=== PATIENT | male | born 1940 | race Caucasian/White ===

== ENCOUNTER 2023-11-21 11:50 | Day surgery (SDC) | payer OTHER, MEDICARE ==
[2023-11-20 10:17] LABS: Absolute Eosinophils 0.4 K/uL (0-0.5); Absolute Lymphocytes (CBC) 2.3 K/uL (0.7-4.9); Absolute Monocytes 0.9 K/uL (0.1-1.3); Basophils % 0.3 % (0-1.3); Eosinophils % 5.5 % (0-4.4); Hematocrit 41.3 % (39.6-49.0); Hemoglobin 13.4 g/dL (13.6-17.9); Lymphocytes % 29.4 % (15.3-44.8); MCH 30.2 pg (27.0-35.0); MCHC 32.4 g/dL (32.0-36.0); MCV 93.2 fL (80-100); MPV 8.5 fL (7.6-11.3); Monocytes % 12.2 % (3.3-12.3); Neutrophils % 52.6 % (41.7-73.7); Platelets 237 thou/uL (152-406); RBC Red Blood Cell Count 4.44 M/uL (4.33-5.43); Red Cell Distribution Width 14.2 % (12.1-15.2)
[2023-11-20 10:28] LABS: Anion Gap 8.7 mEq/L (5.0-15.0); Potassium 3.7 mEq/L (3.5-5.1)
--- NOTE | 2023-11-20 16:53 | EKG ---
Test Date: 2023-11-20 Test Time: 09:55:59 Blade Sharpener: DORIS MEASUREMENT RESULTS: Intervals: Rate: 58 ID: [id number] QRSD: 102 QT: 422 QTc: 414 [place]: P: 41 ID: [id number] QRS: 60 T: 66 INTERPRETIVE STATEMENTS: Sinus bradycardia Otherwise normal ECG Compared to ECG 06/21/2022 10:05:44 Sinus rhythm no longer present Electronically Signed On 11-20-23 16:52:17 CDT by Jamar Flores
[2023-11-21] MEDS ORDERED: Ringers Lactate 1,000 ML IV ONE (12:04)
[2023-11-21] MEDS ORDERED: CEFAZOLIN SODIUM 1 GM/VIAL ONE (12:20)
[2023-11-21] MEDS ORDERED: ONDANSETRON 4 MG/2 ML VIAL ONE (13:14)
[2023-11-21] MEDS ORDERED: propofoL 200 MG/20 ML VIAL IV ONE (13:15)
[2023-11-21] MEDS ORDERED: LIDOCAINE 2% MPF 5 ML VIAL ONE (13:15)
[2023-11-21] MEDS ORDERED: FENTANYL CITR 100 MCG/2 ML ONE (13:15)
[2023-11-21] MEDS ORDERED: BUPIVACAINE 0.25% PF 30 ML VIAL ONE (13:33)
[2023-11-21] MEDS ORDERED: LIDOCAINE HCL/EPINEPHRINE 20 ML MDV ONE (13:45)
[2023-11-21] MEDS ORDERED: dexAMETHasone 4 MG/ML VIAL ONE (14:21)
[2023-11-21] MEDS ORDERED: EPHEDRINE SULF 50 MG/ML VIAL ONE (14:22)
--- NOTE | 2023-11-21 14:51 | P.OP ---
Preoperative diagnosis: RIGHT Posterior Arm Skin Lesions x 2 Postoperative diagnosis: RIGHT Posterior Arm Skin Lesions x 2 Primary procedure: Wide local excision of RIGHT Posterior Arm Skin Lesions x 2 Anesthesia: GETA + Local Estimated blood loss: <5cc Specimen: RIGHT Posterior Arm Skin Lesions x 2 Findings: ~ 1cm pigmented proximal skin lesion, 1.9cm distal arm skin lesion Complications: None Transferred to: Recovery Room Condition: Good
[2023-11-21 15:54] VITALS: BP 156/96; TEMP 97.1; O2SAT 99
--- NOTE | 2023-11-21 19:45 | OP ---
Date of Procedure: 11/21/2023 Surgeon: Marcello Giraldo MD, Preoperative Diagnosis: Right posterior arm skin lesion x2. Postoperative Diagnosis: Right posterior arm skin lesion x2. Procedure Performed: Wide local excision of right posterior skin arm lesion x2. Anesthesia: General endotracheal plus local with 1% lidocaine with epinephrine. Estimated Blood Loss: Less than 5 cc. Specimen: Right posterior arm skin lesion x2. Findings: Approximately 1 cm pigmented raised skin lesion on the proximal aspect of the triceps and 1.9 cm distal triceps skin lesion which is nonpigmented predominantly. Complications: None. Disposition: Patient transferred to recovery room in good condition. Procedure In Detail: After informed consent was obtained, the patient was brought to the operating r oom, prepped and draped in the usual sterile fashion, after adequate anesthesia was achieved. I made an elliptical incision after demarcating the area with approximately 1.5 cm margins around the skin lesions as described. I made an elliptical incision circumferentially around these using a 15 blade down to subcutaneous tissues. Electrocautery was used to dissect down in the subcutaneous fat ultima tely removing the skin lesions. After marking sutures were placed on both proximal and distal skin l esions, these were then sent off for pathologic examination. The area was copiously irrigated. Hemo stasis was easily achieved with electrocautery. The wound was then closed with 3-0 nylon in an inter rupted fashion and a sterile dressing placed over top. The patient tolerated the procedure well without incident or complication, transferred to PACU in good condition. All counts were correc t at the end of the case. LESLEY/SHAHEED Voice ID: [id number] Report ID: [id number]
== END 2023-11-21 15:54 | disposition home or self-care (01) ==
LOC: OR 11:50
PROVIDERS: ATTEND Surgery
DX: C44.622 Squamous cell carcinoma of skin of right upper limb, including shoulder (principal); L82.1 Other seborrheic keratosis
CPT/HCPCS: 93005; 85025; 80048; 36415; 88305; J2704; J1100; J2001; J3010; J2405; J7120; J0690

== ENCOUNTER 2024-07-20 09:45 | Observation (INO) | payer OTHER, MEDICARE ==
[2024-07-20 10:19] LABS: Absolute Basophils 0.1 K/uL (0-0.5); Absolute Eosinophils 0.5 K/uL (0-0.5); Absolute Lymphocytes (CBC) 1.8 K/uL (0.7-4.9); Absolute Monocytes 0.7 K/uL (0.1-1.3); Absolute Neutrophil 3.1 K/uL (1.8-8.0); Basophils % 0.8 % (0-1.3); Eosinophils % 7.9 % (0-4.4); Hematocrit 38.7 % (39.6-49.0); Hemoglobin 12.9 g/dL (13.6-17.9); Lymphocytes % 28.8 % (15.3-44.8); MCH 30.3 pg (27.0-35.0); MCHC 33.4 g/dL (32.0-36.0); MCV 90.7 fL (80-100); MPV 8.3 fL (7.6-11.3); Neutrophils % 50.5 % (41.7-73.7); Nucleated Red Blood Cells % 0.3 % (0-0); Platelets 242 thou/uL (152-406); RBC Red Blood Cell Count 4.26 M/uL (4.33-5.43); Red Cell Distribution Width 13.6 % (12.1-15.2)
[2024-07-20 10:34] LABS: Anion Gap 9.3 mEq/L (5.0-15.0); Potassium 3.3 mEq/L (3.5-5.1); Troponin High Sensitivity 10.1 pg/mL (<58.9)
--- NOTE | 2024-07-20 10:34 | RAD REPORT ---
EXAMINATION: ONE VIEW CHEST XR CLINICAL INDICATION: CHEST PAIN TECHNIQUE: Frontal chest projection is submitted. Examination is limited by patient positioning and t echnique. COMPARISON: 06/21/2022 FINDINGS: Mild interstitial pulmonary edema is seen. The heart is mildly enlarged in size. No displaced fractur es identified. IMPRESSION: Mild CHF.
--- NOTE | 2024-07-20 11:23 | EDPHYS ---
Physician Documentation [facility] Name: Bo Ulrich Age: 84 yrs Sex: Male : 1940 Arrival Date: 07/20/2024 Time: 09:32 Bed 15 Private MD: ED Physician Alfred Verdin HPI: 07/20 09:48 This 84 yrs old Male presents to ER via Unassigned with complaints of Chest Pain > 30 rn y/o. 09:48 The patient or guardian reports chest pain that is located primarily in the anterior rn aspect of left upper chest. Onset: this morning. The pain radiates to the left arm, left neck. Associated signs and symptoms: Pertinent negatives: abdominal pain, cough, diaphoresis, lower extremity swelling, near syncope, palpitations, shortness of breath, syncope, vomiting. The chest pain is described as aching. Modifying factors: The symptoms are alleviated by ASA, NTG, the symptoms are aggravated by. Severity of pain: At its worst the pain was mild in the emergency department the pain has resolved. Patient reports had left upper outer chest pain this morning, lasted for few minutes, later started to feel left arm tingling that radiated into the left neck. No nausea or diaphoresis. No abdominal pain. No vomiting. No symptoms at this time. Given aspirin and nitroglycerin by EMS. Patient reports had echo and stress test in January that did not lead to heart cath. Has never had a heart cath.. Historical: - Allergies: 09:56 No Known Allergies; kc6 - Home Meds: 14:36 telmisartan 80 mg oral tablet 1 tab daily for hypertension [Active]; trazodone 50 mg kc6 Oral tablet 1 tab daily for insomnia associated with depression [Active]; simvastatin 20 mg Oral tablet 1 tab every day at bedtime for atherosclerotic cardiovascular disease [Active]; bisoprolol-hydrochlorothiazide 2.5-6.25 mg oral tablet 1 tab daily for hypertension [Active]; - PMHx: 09:56 Hypertension; High Cholesterol; kc6 - PSHx: 09:56 None; kc6 - Immunization history:: Adult Immunizations up to date. - Infectious Disease History:: Denies. - Family history:: not pertinent. - Social history:: Smoking status: Patient/guardian denies using tobacco, but has a distant history of tobacco abuse. - Hospitalizations: : No recent hospitalization is reported. ROS: 09:48 Constitutional: Negative for fever, chills, and weight loss, Cardiovascular: Positive rn for chest pain Respiratory: Negative for shortness of breath, cough, wheezing, and pleuritic chest pain, Abdomen/GI: Negative for abdominal pain, nausea, vomiting, diarrhea, and constipation, MS/Extremity: Negative for injury and deformity, Skin: Negative for injury, rash, and discoloration, Neuro: Negative for headache, weakness, numbness, tingling, and seizure, Exam: 09:48 Constitutional: This is a well developed, well nourished patient who is awake, alert, rn and in no acute distress. Chest/axilla: No reproducible chest wall pain or tenderness Cardiovascular: Regular rate and rhythm. No pulse deficits. Respiratory: No increased work of breathing, no retractions or nasal flaring. Abdomen/GI: Soft, non-tender MS/ Extremity: Pulses equal, no cyanosis. Neurovascular intact. Full, normal range of motion. Equal circumference. Neuro: Awake and alert, GCS 15 10:03 ECG was reviewed by the Attending Physician. rn Vital Signs: 09:53 BP 168 / 78; Pulse 57; Resp 17 S; Temp 98.3(O); Pulse Ox 96% on R/A; Weight 81.65 kg kc6 (R); Height 5 ft. 7 in. (R); Pain 0/10; 10:13 BP 155 / 69; Pulse 53; Resp 20 S; Pulse Ox 95% on R/A; kc6 10:57 BP 141 / 63; Pulse 55; Resp 15 S; Pulse Ox 97% on R/A; kc6 11:30 BP 167 / 67; Pulse 57; Resp 18 S; Pulse Ox 97% on R/A; kc6 12:15 BP 165 / 68; Pulse 56; Resp 16 S; Pulse Ox 98% on R/A; kc6 13:11 BP 192 / 73; Pulse 57; Resp 17 S; Pulse Ox 98% on R/A; kc6 13:14 BP 189 / 73; Pulse 55; Resp 15 S; Pulse Ox 98% on R/A; kc6 13:31 BP 208 / 85; Pulse 62; Resp 16 S; Pulse Ox 98% on R/A; kc6 14:04 BP 197 / 75; Pulse 56; Resp 19 S; Pulse Ox 99% on R/A; kc6 15:03 BP 200 / 77; Pulse 51; Resp 14 S; Pulse Ox 98% on R/A; kc6 15:35 BP 212 / 88; Pulse 62; Resp 18 S; Pulse Ox 98% on R/A; kc6 15:39 BP 196 / 77; kc6 16:27 BP 182 / 71; Pulse 58; Resp 16 S; Pulse Ox 98% on R/A; kc6 16:38 BP 174 / 62; Pulse 61; Resp 15 S; Pulse Ox 100% on R/A; kc6 17:06 BP 166 / 64; rn 17:13 BP 166 / 64; Pulse 60; Resp 16 S; Pulse Ox 98% on R/A; kc6 18:12 BP 144 / 65; Pulse 56; Resp 16 S; Pulse Ox 98% on R/A; kc6 09:53 Body Mass Index 28.19 (81.65 kg, 170.18 cm) [facility] 09:53 Pain Scale: Adult [facility] MDM: 09:48 Medical Screening Exam initiated rn 11:21 Differential diagnosis: acute myocardial infarction, acute pericarditis, anxiety, rn coronary artery disease chest wall pain, costochondritis, esophagitis, gastritis, pleurisy, pneumothorax. HEART Score: History: Highly Suspicious (2), ECG: Non specific repolarization disturbance / LBTB / PM (1), Age: > or = 65 years (2), Risk Factors: 1 or 2 risk factors (1), Troponin: < or = 1 x Normal Limit (0), Total Score = 6. The patient was not given aspirin in the Emergency Department. Administered by EMS. Data reviewed: vital signs, nurses notes, lab test result(s), EKG, radiologic studies, plain films, and as a result, I will admit patient. Consideration of Admission/Observation Patient was admitted/placed on observation. Escalation of care including admission/observation considered. Counseling: I had a detailed discussion with the patient and/or guardian regarding the historical points, exam findings, and any diagnostic results supporting the discharge/admit diagnosis, lab results, radiology results, the need for further work-up and treatment in the hospital. Response to treatment: the patient's symptoms have resolved after treatment. 12:47 ED course: Called to room when a new family member went into the room and noticed a rn very slight facial droop. I examined the patient and there does not seem to be asymmetry on exam. There is slight weakness at rest but with active smiling and laughing face is equal and no facial droop appreciated. Ordered CT head and CT angiogram given earlier report of paresthesia and tingling in the left arm but does not seem to be cerebral infarction. Patient denies any abnormalities at this time. Family confirms no change in speech. Patient does not report feeling 1 side of his face weaker than other. No current paresthesias. 16:01 ED course: Patient reported brief episode of left lower extremity weakness and rn numbness. Has now resolved. Lasted approximately 5 minutes. No neurology here so we will transfer to [facility] in the [facility] for neurological consult given incidental aneurysm found on CT angiogram. Patient is not a TNKase candidate due to finding of cerebral aneurysm, but patient has also returned back to baseline. NIH is 0 upon reevaluation. Initiated transfer to [facility] for higher level of care. 07/20 09:48 Order name: Basic Metabolic Panel; Complete Time: 10:38 rn 07/20 09:48 Order name: CBC with Diff; Complete Time: 10:23 rn 07/20 09:48 Order name: NT PRO-BNP; Complete Time: 10:38 rn 07/20 09:48 Order name: Troponin HS; Complete Time: 10:38 rn 07/20 09:48 Order name: XRAY Chest (1 view); Complete Time: 10:38 rn 07/20 12:47 Order name: CT Head Brain wo Cont rn 07/20 12:47 Order name: Head Angio CT rn 07/20 13:11 Order name: CT; Complete Time: 13:34 EDLA 07/20 13:23 Order name: CT; Complete Time: 13:34 EDLA 07/20 11:30 Order name: CONS Physician Consult EDLA 07/20 09:48 Order name: Cardiac monitoring; Complete Time: 09:57 rn 07/20 09:48 Order name: EKG - Nurse/Tech; Complete Time: 10:13 rn 07/20 09:48 Order name: IV Saline Lock; Complete Time: 09:57 rn 07/20 09:48 Order name: Labs collected and sent; Complete Time: 10:13 rn 07/20 09:48 Order name: O2 Per Protocol; Complete Time: :57 rn 07/20 09:48 Order name: O2 Sat Monitoring; Complete Time: : rn EC:03 Rate is 55 beats/min. Rhythm is regular. QRS [place] is Normal. ME interval is normal. QRS rn interval is normal. QT interval is normal. No Q waves. T waves are Normal. No ST changes noted. Clinical impression: Sinus bradycardia. Interpreted by me. Reviewed by me. Administered Medications: 13:41 Drug: cloNIDine PO 0.1 mg PO once Route: PO; kc6 15:04 Follow up: Response: No adverse reaction; Blood pressure is unchanged kc6 15:33 Drug: hydrALAZINE IVP 5 mg IVP once Route: IVP; Site: right wrist; kc6 16:06 Follow up: Response: No adverse reaction; Blood pressure is unchanged kc6 16:21 CANCELLED (Duplicate Order): [id number] mg PO once rn 16:27 Drug: Clopidogrel PO 75 mg PO once Route: PO; kc6 16:54 Follow up: Response: No adverse reaction kc6 16:27 Drug: hydrALAZINE IVP 5 mg IVP once Route: IVP; Site: right wrist; kc6 16:54 Follow up: Response: No adverse reaction; Blood pressure is lowered kc6 16:38 Drug: Keppra IV 500 mg IV at calculated rate once Route: IV; Rate: calculated rate; kc6 Site: right wrist; 16:53 Follow up: Response: No adverse reaction; IV Status: Completed infusion; IV Intake: kc6 100ml Disposition: 16:01 Critical Care:. rn Disposition Summary: 07/20/24 16:04 Transfer Ordered Notes: Transfer Location: [facility] rn Reason: Higher level of care rn Condition: Stable(07/20/24 16:04) rn Problem: new(07/20/24 16:04) rn Symptoms: have improved(07/20/24 16:04) rn Accepting Physician: Dr. Abby Nelson(07/20/24 18:13) kc6 Diagnosis - Chest pain, unspecified(07/20/24 16:04) rn - Paresthesia of skin rn - Weakness rn - Cerebral aneurysm, nonruptured rn Forms: - Medication Reconciliation Form rn - SBAR form integrated marketing intern time excluding procedures: 16:01 Critical care time: Bedside Care: 25 minutes, Family Intervention: 10 minutes. Total rn time: 35 minutes Signatures: Dispatcher [employer] EDMS Alfred Verdin MD MD rn Blanchard, Shelby RN RN Monika Ordonez Kaitlyn RN RN kc6 Corrections: (The following items were deleted from the chart) 09:49 09:49 BASIC METABOLIC PANEL+C.LAB.BRZ ordered. EDMS EDMS 09:49 09:49 CBC+H.LAB.BRZ ordered. EDMS EDMS 09:49 09:49 PROBNP+C.LAB.BRZ ordered. EDMS EDMS 09:49 09:49 Troponin High Sensitivity+C.LAB.BRZ ordered. EDMS EDMS 09:49 09:49 Chest Single View+RAD.RAD.BRZ ordered. EDMS EDMS 15:06 11:22 rn 16:03 11:22 Observation rn rn 16:03 11:22 Prieto Gregory rn rn 16:03 11:22 Telemetry/MedSurg (observation) rn rn 16:03 11:22 Stable rn rn 16:03 11:22 new rn rn 16:03 11:22 have improved rn rn 16:03 11:22 Standard rn rn 16:03 11:22 Chest pain, unspecified rn rn 16:03 15:06 202 ss rn 16:21 16:20 Keppra PO 500 mg PO once ordered. rn rn 16:54 16:04 Dr. coulter eb 18:13 16:54 Dr. Abby Nelson eb kc6
--- NOTE | 2024-07-20 11:23 | ER ---
Nurse's Notes [facility] Name: Bo Ulrich Age: 84 yrs Sex: Male : 1940 Arrival Date: 07/20/2024 Time: 09:32 Bed 15 Private MD: Diagnosis: Chest pain, unspecified;Paresthesia of skin;Weakness;Cerebral aneurysm, nonruptured Presentation: 07/20 09:53 Chief complaint: EMS states: they were toned out for left sided CP that began at 0300 kc6 with left arm/numbness beginning just prior to EMS arrival. pt reports all symptoms have resolved at this time. Coronavirus screen: At this time, the client does not indicate any symptoms associated with coronavirus-19. Ebola Screen: No symptoms or risks identified at this time. Initial Sepsis Screen: Does the patient meet any 2 criteria? No. Patient's initial sepsis screen is negative. Does the patient have a suspected source of infection? No. Patient's initial sepsis screen is negative. Risk Assessment: Do you want to hurt yourself or someone else? Patient reports no desire to harm self or others. Onset of symptoms was July 20, 2024. Care prior to arrival: Medication(s) given: ASA, 81 mg, x 4, Nitroglycerin, 0.4 mg SL x 1, IV initiated. 20 GA, in the right wrist. 09:53 Method Of Arrival: EMS: [place] [id number] 09:53 Acuity: SHANNAN 2 kc6 Historical: - Allergies: 09:56 No Known Allergies; kc - Home Meds: 14:36 telmisartan 80 mg oral tablet 1 tab daily for hypertension [Active]; trazodone 50 mg kc6 Oral tablet 1 tab daily for insomnia associated with depression [Active]; simvastatin 20 mg Oral tablet 1 tab every day at bedtime for atherosclerotic cardiovascular disease [Active]; bisoprolol-hydrochlorothiazide 2.5-6.25 mg oral tablet 1 tab daily for hypertension [Active]; - PMHx: 09:56 Hypertension; High Cholesterol; kc6 - PSHx: 09:56 None; kc6 - Immunization history:: Adult Immunizations up to date. - Infectious Disease History:: Denies. - Family history:: not pertinent. - Social history:: Smoking status: Patient/guardian denies using tobacco, but has a distant history of tobacco abuse. - Hospitalizations: : No recent hospitalization is reported. Screenin:56 [facility] ED Fall Risk Assessment (Adult) History of falling in the last 3 months, kc6 including since admission No falls in past 3 months (0 pts) Confusion or Disorientation No (0 pts) Intoxicated or Sedated No (0 pts) Impaired Gait No (0 pts) Mobility Assist Device Used No (0 pt) Altered Elimination No (0 pt) Score/Fall Risk Level 0 - 2 = Low Risk Oriented to surroundings. Abuse screen: Denies threats or abuse. Denies injuries from another. Nutritional screening: No deficits noted. Tuberculosis screening: No symptoms or risk factors identified. 12:50 [place] Swallow Protocol Exclusion Criteria: Unable to remain alert for testing: No NPO kc6 for medical/surgical reason by provider order No Tracheostomy tube present No No thin liquids due to preexisting dysphagia/baseline modified diet thickened liquids No Exclusion Criteria Result: Proceed Brief Cognitive Screen What is your name? Normal, Where are you right now? Normal, What year is it? Normal. Oral Mechanism Examination Facial Symmetry: Normal, Motion: Normal, Lip Closure: Normal, Oral Mechanism Result: Normal. 3 oz Water Swallow Challenge: Pt able to drink all water without stopping, coughing, choking or throat clearing: Yes Result: PASS MD Notified: Alfred Verdin MD. Assessment: 10:13 General: Appears in no apparent distress. comfortable, well groomed, well developed, kc6 Behavior is calm, cooperative, appropriate for age. Pain: Complains of pain in anterior aspect of left upper chest Pain radiates to face and left arm Pain currently is 0 out of 10 on a pain scale. at worst was 3 out of 10 on a pain scale. Pain began 0300 Is lasting more than 1 hour. Neuro: Level of Consciousness is awake, alert, obeys commands, Oriented to person, place, time, situation, Appropriate for age Reports numbness in left arm and left side of neck. Cardiovascular: Reports chest pain, Heart tones S1 S2 present Capillary refill < 3 seconds Rhythm is sinus bradycardia. Respiratory: Airway is patent Trachea midline Respiratory effort is even, unlabored, Respiratory pattern is regular, symmetrical. GI: No signs and/or symptoms were reported involving the gastrointestinal system. : No signs and/or symptoms were reported regarding the genitourinary system. EENT: No signs and/or symptoms were reported regarding the EENT system. Derm: No signs and/or symptoms reported regarding the dermatologic system. Skin is intact, is healthy with good turgor, Skin is pink, warm \T\ dry. Musculoskeletal: No signs and/or symptoms reported regarding the musculoskeletal system. Circulation, motion, and sensation intact. Range of motion: intact in all extremities. 10:57 Reassessment: Patient appears in no apparent distress at this time. No changes from kc6 previously documented assessment. Patient and/or family updated on plan of care and expected duration. Pain level reassessed. Patient is alert, oriented x 3, equal unlabored respirations, skin warm/dry/pink. 11:57 Reassessment: Patient appears in no apparent distress at this time. No changes from kc6 previously documented assessment. Patient and/or family updated on plan of care and expected duration. Pain level reassessed. Patient is alert, oriented x 3, equal unlabored respirations, skin warm/dry/pink. 12:50 Reassessment: Dr. Verdin at bedside. Neuro: Reports subjective left sided facial droop kc6 per family. Denies weakness blurred vision dizziness, paresthesias numbness headache. 12:57 Reassessment: Patient appears in no apparent distress at this time. No changes from kc6 previously documented assessment. Patient and/or family updated on plan of care and expected duration. Pain level reassessed. Patient is alert, oriented x 3, equal unlabored respirations, skin warm/dry/pink. 13:57 Reassessment: Patient appears in no apparent distress at this time. No changes from kc6 previously documented assessment. Patient and/or family updated on plan of care and expected duration. Pain level reassessed. Patient is alert, oriented x 3, equal unlabored respirations, skin warm/dry/pink. 15:03 Reassessment: Patient appears in no apparent distress at this time. No changes from kc6 previously documented assessment. Patient and/or family updated on plan of care and expected duration. Pain level reassessed. Patient is alert, oriented x 3, equal unlabored respirations, skin warm/dry/pink. 15:33 Neuro: Reports paresthesias in right hand, left hand and mouth. kc6 15:33 Reassessment: Dr. Verdin \T\ Dr. Flores made aware. kc6 15:50 Neuro: Reports numbness in left leg weakness in left leg. kc6 15:50 Reassessment: assisted patient with ambulating to the bathroom. pt appears to be kc6 favoring the left side when ambulating. pt reports left leg numbness and weakness after using the bathroom. pt assisted into a wheelchair and back into bed. Dr. Verdin made aware and at bedside discussing symptoms and POC with pt and family. 15:57 Reassessment: pt reports all symptoms have resolved. kc6 16:01 Reassessment: Dr. Gregory at bedside. kc6 16:27 Reassessment: Patient appears in no apparent distress at this time. No changes from kc6 previously documented assessment. Patient and/or family updated on plan of care and expected duration. Pain level reassessed. Patient is alert, oriented x 3, equal unlabored respirations, skin warm/dry/pink. 17:13 Reassessment: Patient appears in no apparent distress at this time. No changes from kc6 previously documented assessment. Patient and/or family updated on plan of care and expected duration. Pain level reassessed. Patient is alert, oriented x 3, equal unlabored respirations, skin warm/dry/pink. Vital Signs: 09:53 BP 168 / 78; Pulse 57; Resp 17 S; Temp 98.3(O); Pulse Ox 96% on R/A; Weight 81.65 kg kc6 (R); Height 5 ft. 7 in. (R); Pain 0/10; 10:13 BP 155 / 69; Pulse 53; Resp 20 S; Pulse Ox 95% on R/A; kc6 10:57 BP 141 / 63; Pulse 55; Resp 15 S; Pulse Ox 97% on R/A; kc6 11:30 BP 167 / 67; Pulse 57; Resp 18 S; Pulse Ox 97% on R/A; kc6 12:15 BP 165 / 68; Pulse 56; Resp 16 S; Pulse Ox 98% on R/A; kc6 13:11 BP 192 / 73; Pulse 57; Resp 17 S; Pulse Ox 98% on R/A; kc6 13:14 BP 189 / 73; Pulse 55; Resp 15 S; Pulse Ox 98% on R/A; kc6 13:31 BP 208 / 85; Pulse 62; Resp 16 S; Pulse Ox 98% on R/A; kc6 14:04 BP 197 / 75; Pulse 56; Resp 19 S; Pulse Ox 99% on R/A; kc6 15:03 BP 200 / 77; Pulse 51; Resp 14 S; Pulse Ox 98% on R/A; kc6 15:35 BP 212 / 88; Pulse 62; Resp 18 S; Pulse Ox 98% on R/A; kc6 15:39 BP 196 / 77; kc6 16:27 BP 182 / 71; Pulse 58; Resp 16 S; Pulse Ox 98% on R/A; kc6 16:38 BP 174 / 62; Pulse 61; Resp 15 S; Pulse Ox 100% on R/A; kc6 17:06 BP 166 / 64; rn 17:13 BP 166 / 64; Pulse 60; Resp 16 S; Pulse Ox 98% on R/A; kc6 18:12 BP 144 / 65; Pulse 56; Resp 16 S; Pulse Ox 98% on R/A; kc6 09:53 Body Mass Index 28.19 (81.65 kg, 170.18 cm) kc6 09:53 Pain Scale: Adult [facility] ED Course: 09:47 Patient arrived in ED. ss 09:48 Alfred Verdin MD is Attending Physician. rn 09:53 Nai Rolon RN is Primary Nurse. kc6 09:56 Triage completed. kc6 09:56 Arm band placed on. kc6 09:56 Patient has correct armband on for positive identification. Placed in gown. Bed in low kc6 position. Call light in reach. Side rails up X2. Adult w/ patient. die assembler on. Pulse ox on. NIBP on. Door closed. Noise minimized. Lights dimmed. Pillow given. Verbal reassurance given. 09:56 Maintain EMS IV. Dressing intact. Good blood return noted. Site clean \T\ dry. Gauge \T\ ivanna 6 site: 20GWRIST. Flushed with 10 mL NS. Patient maintains SpO2 saturation greater than 95% on room air. 10:13 Initial lab(s) drawn, by me, sent to lab. EKG done, by ED staff, reviewed by Alfred Verdin MD. 10:29 XRAY Chest (1 view) In Process Unspecified. EDMS 11:22 Prieto Gregory MD is Hospitalizing Provider. rn 12:50 Diet: Patient given water. Tolerated well. kc6 12:[address] via stretcher. kc6 13:29 Assisted to bathroom. kc6 14:37 Assisted to bathroom. kc6 15:50 Assisted to bathroom. kc6 16:03 initiated a transfer with Giacomo from the [facility]. eb 16:18 connected the neuro youth probation officer for [facility] with Dr. Verdin for patient transfer eb consultation. 16:43 connected the hospitalist youth probation officer for [facility] with Dr. Verdin for patient eb transfer consultation. 16:47 administrative approval given by Giacomo Aguiar Rn/ patient has been accepted to [facility] room 1247/ Dr. Abby Nelson has accepted the patient in transfer/ report to be called to [phone]. 18:12 No provider procedures requiring assistance completed. Patient transferred, IV remains kc6 in place. Administered Medications: 13:41 Drug: cloNIDine PO 0.1 mg PO once Route: PO; kc6 15:04 Follow up: Response: No adverse reaction; Blood pressure is unchanged kc6 15:33 Drug: hydrALAZINE IVP 5 mg IVP once Route: IVP; Site: right wrist; kc6 16:06 Follow up: Response: No adverse reaction; Blood pressure is unchanged kc6 16:21 CANCELLED (Duplicate Order): [id number] mg PO once rn 16:27 Drug: Clopidogrel PO 75 mg PO once Route: PO; kc6 16:54 Follow up: Response: No adverse reaction kc6 16:27 Drug: hydrALAZINE IVP 5 mg IVP once Route: IVP; Site: right wrist; kc6 16:54 Follow up: Response: No adverse reaction; Blood pressure is lowered kc6 16:38 Drug: Keppra IV 500 mg IV at calculated rate once Route: IV; Rate: calculated rate; kc6 Site: right wrist; 16:53 Follow up: Response: No adverse reaction; IV Status: Completed infusion; IV Intake: kc6 100ml Medication: 18:13 VIS not applicable for this client. kc6 Intake: 16:53 IV: 100ml; Total: 100ml. kc6 Outcome: 11:22 Decision to Hospitalize by Provider. rn 16:04 ER care complete, transfer ordered by . rn 18:12 Transferred by [facility]. to [facility], [facility], Transfer form kc6 completed. 18:12 Condition: stable 18:12 Instructed on the need for transfer, 18:13 Patient left the ED. kc6 Signatures: Dispatcher [employer] EDAlfred Nichols MD MD rn Blanchard, Shelby, RN RN ss Botello, Elizabeth eb Campbell, Kaitlyn, RN RN kc6 Corrections: (The following items were deleted from the chart) 13:31 13:14 BP 208 / 85; Pulse 62bpm; Resp 16bpm; Spontaneous; Pulse Ox 98% RA; kc6 kc6 15:34 15:33 Neuro: Reports paresthesias in right hand, left hand and mouth kc6 kc6 15:36 12:50 Neuro: Reports LEFT SIDED FACIAL DROOP. Denies weakness blurred vision dizziness, kc6 paresthesias numbness headache kc6 15:36 15:33 Neuro: Reports paresthesias in right hand, left hand and mouth kc6 kc6 16:04 15:34 Reassessment: Dr. Verdin \T\ Dr. Flores made aware kc6 kc6 16:05 15:50 Reassessment: assisted patient with ambulating to the bathroom. pt appears to be kc6 favoring the left side when ambulating. pt reports left leg numbness and weakness after using the bathroom. pt assisted into a wheelchair and back into bed. Dr. Verdin made aware and at bedside. kc6
--- NOTE | 2024-07-20 13:11 | RAD REPORT ---
EXAM: CT brain without contrast HISTORY: paresthesia COMPARISON: 10/03/2016 TECHNIQUE: Multiple contiguous axial images were obtained and a CT of the brain without contrast. Sag ittal and coronal reformats were performed. One or more of the following dose reduction techniques were used: Automated exposure control, adjust ment of the mA and/or kV according to patient size, and/or iterative reconstruction. FINDINGS: No evidence of hydrocephalus, intracranial hemorrhage, or extra-axial fluid collection. Mild brain atrophy with mild periventricular and deep white matter chronic microvascular ischemic ch anges present. Old left basal ganglia lacune noted. No evidence of midline shift or areas of brain edema. The calvarium is intact. The visualized paranasal sinuses and mastoid air cells are essentially clear . IMPRESSION: No evidence of acute intracranial abnormality.
--- NOTE | 2024-07-20 13:23 | RAD REPORT ---
EXAMINATION: CTA HEAD CLINICAL INDICATION: paresthesia TECHNIQUE: Axial CT images were obtained through the head after intravenous contrast utilizing angiog raphic protocol with 3D post-processing (maximum intensity projection images, volume rendered images and/or shaded surface rendered images). One or more of the following dose reduction technique s were used: Automated exposure control, adjustment of the mA and/or kV according to patient size, and/or iterative reconstruction. Unless otherwise specified, incidental findings do not require dedic ated imaging follow-up. COMPARISON: No prior exam. FINDINGS: ICA: The petrous, cavernous, and supraclinoid segments of the bilateral internal carotid arteries are normal. The ophthalmic artery origins are visualized and normal. The posterior communicating arteries are patent. IVIS: There is a 5 mm aneurysm suspected in the region of the anterior communicating artery. A1 and A2 segments are patent. MCA: Middle cerebral arteries are normal bilaterally. SCARF AND ANNEAL OPERATOR: Posterior cerebral arteries are normal bilaterally. Vertebrobasilar: The vertebral arteries are patent. The left vertebral artery is mildly dominant. The basilar artery is normal in appearance. 3D images confirm these findings. 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
[2024-07-20] MEDS ORDERED: cloNIDine HCL 0.1 MG TAB ONE (13:37)
[2024-07-20] MEDS ORDERED: HYDRALAZINE HCL 20 MG/ML VIAL ONE ×2 (15:27→16:20)
[2024-07-20] MEDS ORDERED: CLOPIDOGREL 75 MG TABLET ONE (16:20)
[2024-07-20] MEDS ORDERED: POTASSIUM CL SA 10 MEQ TAB PO STA (16:21)
--- NOTE | 2024-07-20 16:27 | P.SSS ---
Patient History Date of Service: 07/20/24 Reason for admission: L SIDE NECK, ARM TINGLY AND LEANING TO L ON WALKING History of Present Illness: MANJEET CAME WITH ABOVE COMPLAINTS OF L SIDE ARM TINGLING, L SIDE CHEST TINGLING AND LATER DAUGHTER NOTED L FACIAL WEAKNESS THAT RESOLVED. WHILE WALKING TO BATHROOM HE WANTED TO GO TO LEFT SIDE. THAT HAS NOW RESOLVED. DR. 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 THERE IS NO BLEEDING. Allergies No Known Allergies Allergy (Verified 11/21/23 12:35) Home medications list reviewed: Yes Home Medications: Potassium Citrate [Potassium] 99 mg PO DAILY 06/21/22 Simvastatin [Zocor] 20 mg PO DAILY 06/21/22 Telmisartan [Micardis] 80 mg PO DAILY 06/21/22 Ascorbic Acid [Vitamin C] 500 mg PO DAILY 11/20/23 Cholecalciferol (Vitamin D3) [Vitamin D3] 1,000 unit PO DAILY 11/20/23 bisoproloL fumarate [Zebeta] 2.5 mg PO BEDTIME 11/20/23 - Past Medical/Surgical History Diabetic: No -: HTN -: High Cholesterol -: Prostate surgery -: carpal tunnel surgery - Family History Father -: Hypertension, Stroke Mother -: Heart disease, Diabetes, Other (see notes) Notes: Heart attack, Brain Aneurism - Social History Alcohol use: No CD- Drugs: No Caffeine use: Yes Review of Systems 10-point ROS is otherwise unremarkable General: Weakness Physical Examination - Physical Exam General: Alert, In no apparent distress, Acute distress HEENT: Atraumatic, PERRLA, Mucous membr. moist/pink, EOMI, Sclerae nonicteric Neck: Supple, 2+ carotid pulse no bruit, No LAD, Without JVD or thyroid abnormality Respiratory: Clear to auscultation bilaterally, Normal air movement Cardiovascular: Regular rate/rhythm, Normal S1 S2 Gastrointestinal: Normal bowel sounds, No tenderness Musculoskeletal: No tenderness Integumentary: No rashes Neurological: Normal speech, Normal strength at 5/5 x4 extr, Abnormal gait (L LEANING. ) Lymphatics: No axilla or inguinal lymphadenopathy - Studies Laboratory Data (last 24 hrs) 07/20/24 07/20/24 10:09 10:09 WBC 6.20 Hgb 12.9 L Hct 38.7 L Plt Count 242 Sodium 136 Potassium 3.3 L BUN 15 Creatinine 0.99 Glucose 121 H - Diagnosis (Problem(s)) (1) Anterior communicating artery aneurysm Current Visit: Yes Status: Acute Plan: SMALL, POSSIBLY UNRELATED TO TIA OR STROKE HE HAD. FU AT [facility] (2) TIA (transient ischemic attack) Onset Date: 10/04/16 Current Visit: No Status: Acute Plan: MRI MAY SHOW A STROKE. WE DO NOT HAVE MRI ON THE WEEKEND HERE AT [facility]. HE WILL BE MOVED TO [facility] OR ANY OTHER HOSPITAL FOR HIGHER LEVEL OF CARE. HE GOT ASA THIS AM [place] ONCE. BP CONTROL BY DR. LOO HE GAVE CLONIDINE AND HYDRALAZINE ALREADY. BP TENDS TO GO UP WITH ANY ACUTE NEURO EVENT. FAMILY AT BEDSIDE, AND TWO DAUGHTERS, I DISCUSSED WITH. - Disposition Disposition: ROUTINE DISCHARGE
[2024-07-20] MEDS ORDERED: LEVETIRACETAM 500 MG/5 ML VIAL IV ONE (16:32)
[2024-07-20] MEDS ORDERED: NA CHLORIDE 0.9% 100 ML ONE (16:32)
[2024-07-20 18:18] VITALS: TEMP 98.3
[2024-07-20 18:35] VITALS: O2SAT 98
[2024-07-20 18:37] VITALS: BP 144/65
--- NOTE | 2024-07-20 18:51 | CON ---
Date of Consultation: 07/20/2024 Reason For Consultation: Chest pain. History Of Present Illness: This is an 84-year-old male, past medical history is hypertension, dysli pidemia, who was evaluated in January, had a stress test that was normal, mild MR, presented with in itially a chest pain, pressure like, radiates to his neck and then he had numbness that involved the left side of the neck and the left upper extremity, lasted for short period of time and resolved. No further history of symptoms and he does not have any chest pain. Denies having any exertional chest pain. Past Medical History: As outlined above in the HPI. Medications: Refer to reconciliation sheet for detailed list. Allergies: NO KNOWN DRUG ALLERGIES. Family History: No premature coronary artery disease or cancer. Social History: Does not smoke or drink. Does not use any drugs. Review of Systems: All systems reviewed and they were negative except as mentioned in the HPI. Physical Examination: Vital Signs: Reviewed. Head and Neck: Pupils are equal, reactive to light. Intact eye movements. No JVD, no cervical lymp hadenopathy. Neck is supple. Thyroid is not enlarged. Lungs: Clear to auscultation bilaterally. No rhonchi, wheezing, or crackles. No accessory muscle u se. Heart: Regular rate and rhythm. No extra sounds. Abdomen: Soft, nontender. Bowel sounds positive. No organomegaly. No masses or hernia. No rigidi ty or rebound. Extremities: No edema, clubbing, or cyanosis. Intact pulses. Skin: No rash. No nodule. Neurologic: Alert, awake, oriented x3. No acute focal deficits appreciated. Investigations: First troponin is negative. BUN is 15, creatinine 0.99, and hemoglobin is 12.9. Assessment And Recommendations: 1. Chest pain, concerning symptoms. Admitted for observation. Start baby aspirin and monitor cardia c enzymes 2 more sets, on bankruptcy manager. He had recent cardiac imaging done in my office, so no need to do any cardiac workup at this moment. If his troponin becomes positive, then we will plan fo r coronary angiogram tomorrow. If the troponin stays negative, then I will plan to do a cardiac PET stress test on him as an outpatient. At this moment, he is asymptomatic. We will keep monitoring. 2. Tingling, numbness involving the left side of the body. Obtain carotid ultrasound and consult Saul saundersogy and continue aspirin. Check lipids. 3. Hypertension, his blood pressure is controlled. Continue home medications. Thank you for the consult. NANCY Voice ID: [id number] Report ID: [id number]
--- NOTE | 2024-07-21 11:58 | EKG ---
Test Date: 2024-07-20 Test Time: 10:01:02 Accounting Professor: SHEN MEASUREMENT RESULTS: Intervals: Rate: 55 MI: 202 QRSD: 100 QT: 432 QTc: 413 [place]: P: 37 MI: 202 QRS: 64 T: 37 INTERPRETIVE STATEMENTS: Sinus bradycardia Otherwise normal ECG Compared to ECG 11/20/2023 09:55:59 No significant changes Electronically Signed On 07-21-24 11:56:37 CDT by Howard Shelton
== END 2024-07-20 18:13 | disposition short-term general hospital (02) ==
LOC: ER 09:45 → ERHOLD 11:27
PROVIDERS: ADMIT Internal Medicine; ATTEND Internal Medicine
DX: G45.9 Transient cerebral ischemic attack, unspecified (principal); R07.9 Chest pain, unspecified; R20.0 Anesthesia of skin; I10 Essential (primary) hypertension; E78.00 Pure hypercholesterolemia, unspecified; E78.5 Hyperlipidemia, unspecified; R53.1 Weakness; I67.1 Cerebral aneurysm, nonruptured
CPT/HCPCS: 93005; 85025; 80048; 36415; 84484; 83880; 70450; 70496; 71045; 96375; 96374; 99285; Q9967; J1953; J0360 ×2; G0378 ×2

== ENCOUNTER 2024-12-14 19:26 | Observation (INO) | payer OTHER, MEDICARE ==
[2024-12-14] MEDS ORDERED: ONDANSETRON 4 MG (ODT) TAB ONE (20:35)
[2024-12-14] MEDS ORDERED: CODEINE 30MG/APAP 300MG TAB ONE (20:36)
[2024-12-14 20:55] LABS: PT Prothrombin Time 12.1 SECONDS (10-13.0); Protime INR 1.07
[2024-12-14 21:15] LABS: ALT/SGPT 41.0 U/L (16-61); AST/SGOT 22.0 U/L (15-37); Albumin 3.3 g/dL (3.4-5.0); Albumin/Globulin Ratio 1.1 (1.1-1.8); Alkaline Phosphatase 70.0 U/L (45-117); Anion Gap 9.7 mEq/L (5.0-15.0); BUN Blood Urea Nitrogen 14.0 mg/dL (7-18); Bilirubin Indirect, Calculated 0.3 mg/dL (0.2-0.8); Globulin 3.1 g/dL (2.3-3.5); Glucose Level 130.0 mg/dL (74-106); Magnesium 2.2 mg/dL (1.6-2.4); NT PRO-BNP 315.0 pg/mL (<450); Potassium 3.7 mEq/L (3.5-5.1); Troponin High Sensitivity 11.2 pg/mL (<58.9)
[2024-12-14 21:24] LABS: Absolute Lymphocytes (CBC) 1.8 K/uL (0.7-4.9); Hematocrit 38.3 % (39.6-49.0); Hemoglobin 12.8 g/dL (13.6-17.9); MCH 30.0 pg (27.0-35.0); MCHC 33.4 g/dL (32.0-36.0); MCV 89.8 fL (80-100); MPV 9.0 fL (7.6-11.3); Nucleated RBC Absolute Count 0.0 (0-0); Nucleated Red Blood Cells % 0.1 % (0-0); RBC Red Blood Cell Count 4.27 M/uL (4.33-5.43); White Blood Count 6.50 thou/uL (4.3-10.9)
--- NOTE | 2024-12-14 23:25 | EDPHYS ---
Physician Documentation [facility] Name: Bo Ulrich Age: 84 yrs Sex: Male : 1940 Arrival Date: 12/14/2024 Time: 19:26 Bed 7 Private MD: ED Physician Dougie Worthy HPI: 12/14 19:34 This 84 yrs old Other Race Male presents to ER via Unassigned with complaints of High sp4 Blood Pressure. 12/15 19:22 Patient reports blood pressure 210/100 or in a similar range at home with left arm pain.sp4 Historical: - Allergies: 12/14 19:47 Iodine; me1 - PMHx: 19:47 High Cholesterol; Hypertension; Cerebrovascular accident; me1 - PSHx: 19:47 skin cancer removal with skin graft; me1 - Immunization history:: Adult Immunizations up to date. - Infectious Disease History:: Denies. - Social history:: Smoking status: Patient/guardian denies using tobacco, but has a distant history of tobacco abuse. - Family history:: not pertinent. ROS: 12/15 19:22 Constitutional: Negative for fever, chills, and weight loss, positive for elevated sp4 blood pressure positive for left arm pain. All other systems are negative, Exam: 19:22 Constitutional: This is a well developed, well nourished patient who is awake, alert, sp4 and in no acute distress. Head/Face: Normocephalic, atraumatic. Eyes: Pupils equal round and reactive to light, extra-ocular motions intact. Lids and lashes normal. Conjunctiva and sclera are not injected. Cornea within normal limits. Periorbital areas with no swelling, redness, or edema. ENT: Nares patent. No nasal discharge, no septal abnormalities noted. Tympanic membranes are normal and external auditory canals are clear. Oropharynx with no redness, swelling, or masses, exudates, or evidence of obstruction, uvula midline. Mucous membranes moist. Neck: Trachea midline, no thyromegaly or masses palpated, and no cervical lymphadenopathy. Supple, full range of motion without nuchal rigidity, or vertebral point tenderness. Chest/axilla: Normal chest wall appearance and motion. Nontender with no deformity. No lesions are appreciated. Cardiovascular: Regular rate and rhythm with a normal S1 and S2. No gallops, murmurs, or rubs. No pulse deficits. Respiratory: Lungs have equal breath sounds bilaterally, clear to auscultation and percussion. No rales, rhonchi or wheezes noted. No increased work of breathing, no retractions or nasal flaring. Abdomen/GI: Soft, with normal bowel sounds. No distension or tympany. No guarding or rebound. No evidence of tenderness throughout. Back: No spinal tenderness. No costovertebral tenderness. Skin: Warm, dry with normal turgor. Normal color with no rashes, no lesions, and no evidence of cellulitis. MS/ Extremity: Pulses equal, no cyanosis. Neurovascular intact. Full, normal range of motion. Neuro: Awake and alert, GCS 15, oriented to person, place, time, and situation. Cranial nerves II-XII grossly intact. Motor strength 5/5 in all extremities. Sensory grossly intact. Psych: Awake, alert, with orientation to person, place and time. Behavior, mood, and affect are within normal limits 19:22 ECG was reviewed by the Attending Physician. EKG at 2002 sinus bradycardia rate 57. Vital Signs: 12/14 19:45 BP 200 / 88; Pulse 62; Resp 18; Temp 98.4; Pulse Ox 99% ; Weight 78.02 kg; Height 5 ft. me1 7 in. ; Pain 5/10; 20:47 BP 174 / 75; Pulse 59; Resp 16; Pulse Ox 98% on R/A; cc6 21:45 BP 173 / 74; Pulse 51; Resp 17; Pulse Ox 97% on R/A; cc6 23:54 BP 145 / 66; Pulse 44; Resp 12; Pulse Ox 96% on R/A; cc6 12/15 00:55 BP 174 / 66; Pulse 46; Resp 15; Pulse Ox 98% on R/A; cc6 12/14 19:45 Body Mass Index 26.94 (78.02 kg, 170.18 cm) me1 12/14 19:45 Pain Scale: Adult me1 [place] Coma Score: 19:22 Eye Response: spontaneous(4). Motor Response: obeys commands(6). Verbal Response: sp4 oriented(5). Total: 15. MDM: 12/14 20:03 Differential diagnosis: hypertensive crisis, Malignant HTN, Unstable angina. Data sp4 reviewed: vital signs, nurses notes, old medical records, lab test result(s), EKG. Consideration of Admission/Observation Patient was admitted/placed on observation. Escalation of care including admission/observation considered. Management of patient was discussed with the following: Primary Care Provider: Dr. Gregory . ED course: Requested admission to primary care physician for blood pressure control. Also to recheck troponin in the morning. 21:15 Medical Screening Exam initiated sp4 12/14 19:36 Order name: Basic Metabolic Panel; Complete Time: 22:17 sp4 12/14 19:36 Order name: CBC with Diff; Complete Time: 22:17 sp4 12/14 19:36 Order name: LFT's; Complete Time: 22:17 sp4 12/14 19:36 Order name: Magnesium; Complete Time: 22:17 sp4 12/14 19:36 Order name: NT PRO-BNP; Complete Time: 22:17 sp4 12/14 19:36 Order name: PT-INR; Complete Time: 22:17 sp4 12/14 19:36 Order name: Troponin HS; Complete Time: 22:17 sp4 12/14 20:25 Order name: CK; Complete Time: 22:17 sp4 12/14 23:18 Order name: CONS Physician Consult EDIN 12/14 19:36 Order name: Cardiac monitoring; Complete Time: 20:06 sp4 12/14 19:36 Order name: EKG - Nurse/Tech; Complete Time: 20:06 sp4 12/14 19:36 Order name: IV Saline Lock; Complete Time: 20:30 sp4 12/14 19:36 Order name: Labs collected and sent; Complete Time: 20:30 sp4 12/14 19:36 Order name: O2 Per Protocol; Complete Time: 20:30 sp4 12/14 19:36 Order name: O2 Sat Monitoring; Complete Time: 20:06 sp4 EC:03 Rate is 57 beats/min. Rhythm is regular, Sinus bradycardia. QRS [place] is Normal. [place] sp4 interval is normal. QRS interval is normal. QT interval is normal. No Q waves. T waves are Normal. No ST changes noted. Clinical impression: No evidence of ischemia. Interpreted by me. Reviewed by me. Administered Medications: 20:46 Drug: Acetaminophen-Codeine PO (300 mg-30 mg) 2 tabs PO once; RASS on ADMIN: Combtv4, cc6 Very Agttd3, Agttd2, Rstlss1, AlertClm0, Drwsy-1, Lt Sdtn-2, Mod Sdtn-3, Dp Sdtn-4, UnArsble-5 Route: PO; 21:26 Follow up: Response: No adverse reaction; Pain is decreased cc6 21:27 Follow up: Response: RASS: Alert and Calm (0) cc6 20:46 Drug: Methocarbamol PO 750 mg PO once Route: PO; cc6 21:26 Follow up: Response: No adverse reaction cc6 20:46 Drug: Ondansetron PO 4 mg PO once Route: PO; cc6 21:26 Follow up: Response: No adverse reaction cc6 20:46 Drug: cloNIDine PO 0.2 mg PO once Route: PO; cc6 21:27 Follow up: Response: No adverse reaction cc6 Disposition: 12/15 19:25 Chart complete. sp4 Disposition Summary: 12/14/24 23:24 Hospitalization Ordered Notes: Hospitalization Status: Observation sp4 Provider: Prieto Gregory sp4 Location: Telemetry/MedSur (observation) sp4 Condition: Stable sp4 Problem: new sp4 Symptoms: have improved sp4 Bed/Room Type: Standard sp4 Room Assignment: 406(12/14/24 23:30) Diagnosis - Essential (primary) hypertension sp4 - Hypertensive urgency, atypical chest pain, uncontrolled hypertension sp4 Forms: - Medication Reconciliation Form sp4 - SBAR form sp4 - Leadership Thank You Letter sp4 Signatures: Dispatcher [employer] Dougie Vu MD MD sp4 Nolvia Magallon, RN RN 1 Deena Keene Cassandra, RN RN cc6 Corrections: (The following items were deleted from the chart) 12/14 19:37 19:37 BASIC METABOLIC PANEL+C.LAB.BRZ ordered. EDMS EDMS 19:37 19:37 CBC+H.LAB.BRZ ordered. EDMS EDMS 19:37 19:37 HEPATIC FUNCTION+C.LAB.BRZ ordered. EDMS EDMS 19:37 19:37 MAGNESIUM+C.LAB.BRZ ordered. EDMS EDMS 19:37 19:37 PROBNP+C.LAB.BRZ ordered. EDMS EDMS 37 19:37 PROTIME (+INR)+COAG.LAB.BRZ ordered. EDMS EDMS 37 19:37 Troponin High Sensitivity+C.LAB.BRZ ordered. EDMS EDMS 19:48 19:47 Allergies: No Known Allergies; me1 me1 23:30 23:24 sp4 vk
--- NOTE | 2024-12-14 23:25 | ER ---
Nurse's Notes [facility] Name: Bo Ulrich Age: 84 yrs Sex: Male : 1940 Arrival Date: 12/14/2024 Time: 19:26 Bed 7 Private MD: Diagnosis: Essential (primary) hypertension;Hypertensive urgency, atypical chest pain, uncontrolled hypertension Presentation: 12/14 19:45 Chief complaint: Patient states: BP was high at home 207/99. Hx of CVA in July this year me1 with left sided numbness and reports that today his left hand and left foot are hurting. 5/10, constant pain. Coronavirus screen: Vaccine status: Patient reports receiving the 2nd dose of the covid vaccine. Ebola Screen: No symptoms or risks identified at this time. Initial Sepsis Screen: Does the patient meet any 2 criteria? No. Patient's initial sepsis screen is negative. Does the patient have a suspected source of infection? No. Patient's initial sepsis screen is negative. Risk Assessment: Do you want to hurt yourself or someone else? Patient reports no desire to harm self or others. Onset of symptoms was December 14, 2024. 19:45 Method Of Arrival: Wheelchair [facility] 19:45 Acuity: SHANNAN 3 me1 Triage Assessment: 19:47 General: Appears in no apparent distress. Behavior is calm, cooperative, appropriate me1 for age. Pain: Complains of pain in left hand and left foot Pain does not radiate. Pain currently is 5 out of 10 on a pain scale. Quality of pain is described as aching, Pain began suddenly, Is continuous. EENT: No signs and/or symptoms were reported regarding the EENT system. Neuro: Level of Consciousness is awake, alert, obeys commands, Oriented to person, place, time, situation, Appropriate for age. Cardiovascular: Patient's skin is warm and dry. Respiratory: Airway is patent Respiratory effort is even, unlabored, Respiratory pattern is regular, symmetrical. GI: No signs and/or symptoms were reported involving the gastrointestinal system. : No signs and/or symptoms were reported regarding the genitourinary system. Derm: Skin is intact, is healthy with good turgor, Skin is normal. Musculoskeletal: Circulation, motion, and sensation intact. Range of motion: intact in all extremities. Historical: - Allergies: 19:47 Iodine; me1 - PMHx: 19:47 High Cholesterol; Hypertension; Cerebrovascular accident; me1 - PSHx: 19:47 skin cancer removal with skin graft; me1 - Immunization history:: Adult Immunizations up to date. - Infectious Disease History:: Denies. - Social history:: Smoking status: Patient/guardian denies using tobacco, but has a distant history of tobacco abuse. - Family history:: not pertinent. Screenin:34 [facility] ED Fall Risk Assessment (Adult) History of falling in the last 3 months, cc6 including since admission No falls in past 3 months (0 pts) Confusion or Disorientation No (0 pts) Intoxicated or Sedated No (0 pts) Impaired Gait No (0 pts) Mobility Assist Device Used Yes (1 pt) Altered Elimination No (0 pt) Score/Fall Risk Level 0 - 2 = Low Risk Oriented to surroundings, Maintained a safe environment, Educated pt \T\ family on fall prevention, incl call for assistance when getting out of bed. Abuse screen: Denies threats or abuse. Denies injuries from another. Nutritional screening: No deficits noted. Tuberculosis screening: No symptoms or risk factors identified. Assessment: 19:34 General: Appears in no apparent distress. comfortable, Behavior is calm, cooperative, cc6 appropriate for age. Pain: Complains of pain in left hand and left foot Pain does not radiate. Pain currently is 5 out of 10 on a pain scale. Quality of pain is described as tender, numb, Pain began 1 day ago. Is continuous. Neuro: Level of Consciousness is awake, alert, Oriented to person, place, time, situation, Reports numbness in left hand and left foot that has been ongoing since a CVA this past July. Cardiovascular: Patient's skin is warm and dry. Respiratory: Airway is patent Respiratory effort is even, unlabored, Respiratory pattern is regular, symmetrical. GI: No signs and/or symptoms were reported involving the gastrointestinal system. : No signs and/or symptoms were reported regarding the genitourinary system. EENT: No signs and/or symptoms were reported regarding the EENT system. Derm: No signs and/or symptoms reported regarding the dermatologic system. Musculoskeletal: Range of motion: intact in all extremities. 20:50 Reassessment: Patient and/or family updated on plan of care and expected duration. Pain cc6 level reassessed. Patient is alert, oriented x 3, equal unlabored respirations, skin warm/dry/pink. 21:45 Reassessment: Patient and/or family updated on plan of care and expected duration. Pain cc6 level reassessed. Patient is alert, oriented x 3, equal unlabored respirations, skin warm/dry/pink. 23:54 Reassessment: Patient and/or family updated on plan of care and expected duration. Pain cc6 level reassessed. Patient is alert, oriented x 3, equal unlabored respirations, skin warm/dry/pink. 12/15 00:55 Reassessment: Patient and/or family updated on plan of care and expected duration. Pain cc6 level reassessed. Patient is alert, oriented x 3, equal unlabored respirations, skin warm/dry/pink. Vital Signs: 12/14 19:45 BP 200 / 88; Pulse 62; Resp 18; Temp 98.4; Pulse Ox 99% ; Weight 78.02 kg; Height 5 ft. me1 7 in. ; Pain 5/10; 20:47 BP 174 / 75; Pulse 59; Resp 16; Pulse Ox 98% on R/A; cc6 21:45 BP 173 / 74; Pulse 51; Resp 17; Pulse Ox 97% on R/A; cc6 23:54 BP 145 / 66; Pulse 44; Resp 12; Pulse Ox 96% on R/A; cc6 12/15 00:55 BP 174 / 66; Pulse 46; Resp 15; Pulse Ox 98% on R/A; cc6 12/14 19:45 Body Mass Index 26.94 (78.02 kg, 170.18 cm) me1 12/14 19:45 Pain Scale: Adult me1 [place] Coma Score: 19:22 Eye Response: spontaneous(4). Motor Response: obeys commands(6). Verbal Response: sp4 oriented(5). Total: 15. ED Course: 12/14 19:28 Patient arrived in ED. mr 19:34 Dougie Worthy MD is Attending Physician. sp4 19:34 Bed in low position. Call light in reach. Side rails up X 1. Provided Education on: use cc6 of call light. 19:47 Triage completed. me1 19:47 Arm band placed on Patient placed in an exam room. me1 19:57 Kirsten Salvador, RN is Primary Nurse. kd3 20:06 EKG done, by player piano technician. reviewed by Dougie Worthy MD. ts3 20:30 Initial lab(s) drawn, by label fuser tender, sent to lab. Inserted saline lock: 20 gauge in right ts3 antecubital area, using aseptic technique. Blood collected. Flushed with 10 mL NS. 20:46 Basic Metabolic Panel Sent. cc6 20:46 CBC with Diff Sent. cc6 20:46 LFT's Sent. cc6 20:46 Magnesium Sent. cc6 20:46 NT PRO-BNP Sent. cc6 20:47 PT-INR Sent. cc6 20:47 Troponin HS Sent. cc6 23:23 Prieto Gregory MD is Hospitalizing Provider. sp4 12/15 01:10 No provider procedures requiring assistance completed. Patient admitted, IV remains in cc6 place. Administered Medications: 12/14 20:46 Drug: Acetaminophen-Codeine PO (300 mg-30 mg) 2 tabs PO once; RASS on ADMIN: Combtv4, cc6 Very Agttd3, Agttd2, Rstlss1, AlertClm0, Drwsy-1, Lt Sdtn-2, Mod Sdtn-3, Dp Sdtn-4, UnArsble-5 Route: PO; 21:26 Follow up: Response: No adverse reaction; Pain is decreased cc6 21:27 Follow up: Response: RASS: Alert and Calm (0) cc6 20:46 Drug: Methocarbamol PO 750 mg PO once Route: PO; cc6 21:26 Follow up: Response: No adverse reaction cc6 20:46 Drug: Ondansetron PO 4 mg PO once Route: PO; cc6 21:26 Follow up: Response: No adverse reaction cc6 20:46 Drug: cloNIDine PO 0.2 mg PO once Route: PO; cc6 21:27 Follow up: Response: No adverse reaction cc6 Medication: 12/15 01:11 VIS not applicable for this client. cc6 Outcome: 12/14 23:24 Decision to Hospitalize by Provider. sp4 12/15 01:10 Admitted to [facility] via wheelchair, room 406, cc6 Condition: stable Instructed on the need for admit, 01:11 Patient left the ED. cc6 Signatures: Florence Parmar, Reg Reg mr Salvador Kirsten, RN RN kd3 Dougie Worthy MD MD sp4 Nolvia Magallon, ALEXANDER RN me1 Diane Unger, RN RN cc6 Perez Ana Rosa ts3 Corrections: (The following items were deleted from the chart) 12/14 19:48 19:47 Allergies: No Known Allergies; me1 me1 20:50 20:05 General: Appears in no apparent distress. comfortable, Behavior is calm, cc6 cooperative, appropriate for age, cc6 20:50 20:05 Pain: Complains of pain in left hand and left foot Pain does not radiate. Pain cc6 currently is 5 out of 10 on a pain scale. Quality of pain is described as tender, numb, Pain began 1 day ago. Is continuous, cc6 20:50 20:05 Neuro: Level of Consciousness is awake, alert, Oriented to person, place, time, cc6 situation, Reports numbness in left hand and left foot that has been ongoing since a CVA this past July. cc6 20:50 20:05 Cardiovascular: Patient's skin is warm and dry. cc6 cc6 20:50 20:05 Respiratory: Airway is patent Respiratory effort is even, unlabored, Respiratory cc6 pattern is regular, symmetrical, cc6 20:50 20:05 GI: No signs and/or symptoms were reported involving the gastrointestinal system. cc6 cc6 20:50 20:05 : No signs and/or symptoms were reported regarding the genitourinary system. cc6cc6 20:50 20:05 EENT: No signs and/or symptoms were reported regarding the EENT system. cc6 cc6 20:50 20:05 Derm: No signs and/or symptoms reported regarding the dermatologic system. cc6 cc6 20:50 20:05 Musculoskeletal: Range of motion: intact in all extremities, cc6 cc6
[2024-12-15] MEDS ORDERED: ONDANSETRON 4 MG/2 ML VIAL IV PRN (01:28)
[2024-12-15] MEDS ORDERED: HYDRALAZINE HCL 25 MG TABLET PO PRN (01:28)
[2024-12-15] MEDS ORDERED: ALBUTEROL 2.5 MG/3 ML NEB SOL NEB PRN (01:28)
[2024-12-15] MEDS ORDERED: MAGNESIUM HYDROXIDE 8% 30 ML PO PRN (01:28)
[2024-12-15] MEDS ORDERED: ACETAMINOPHEN 325 MG TABLET PO PRN (01:28)
[2024-12-15] MEDS ORDERED: ZOLPIDEM TARTRATE 5 MG TABLET PO PRN (01:28)
[2024-12-15] MEDS: HYDROCODONE/APAP 5/325 MG TAB PO PRN (02:17)
[2024-12-15] MEDS: HYDRALAZINE HCL 20 MG/ML VIAL IV PRN (02:18)
[2024-12-15 02:34] VITALS: BMI 26.9
[2024-12-15 04:08] LABS: Urine Microscopic Reflex YN NO UMIC
[2024-12-15 07:55] LABS: Anion Gap 7.4 mEq/L (5.0-15.0); BUN Blood Urea Nitrogen 11.0 mg/dL (7-18); Glucose Level 84.0 mg/dL (74-106); Potassium 3.4 mEq/L (3.5-5.1)
[2024-12-15] MEDS: FLU (Fluarix) 25-26 (6MOS UP)/PF 45 MCG/0.5 ML Syringe IM ONE (08:00)
[2024-12-15] MEDS: NEBIVOLOL HCL 20 MG TABLET PO SCH (09:01)
[2024-12-15] MEDS: VALSARTAN 80 MG TAB PO SCH (09:01)
[2024-12-15] MEDS: CLOPIDOGREL 75 MG TABLET PO SCH (09:02)
[2024-12-15 09:35] VITALS: O2SAT 93
--- NOTE | 2024-12-15 11:00 | P.CNS ---
Date of Consult: 12/15/24 Chief Complaint: Hypertension History of Present Illness: Patient with PMH of HTN, presented with high BP, denies chest pain, no palpitations, no syncope, no breathing problems. Allergies iodine Adverse Reaction (Severe, Verified 12/15/24 01:30) Anaphylaxis Home medications list reviewed: Yes Home Medications: Potassium Citrate [Potassium] 99 mg PO DAILY 06/21/22 Simvastatin [Zocor] 20 mg PO DAILY 06/21/22 Telmisartan [Micardis] 80 mg PO DAILY 06/21/22 Ascorbic Acid [Vitamin C] 500 mg PO DAILY 11/20/23 Cholecalciferol (Vitamin D3) [Vitamin D3] 1,000 unit PO DAILY 11/20/23 bisoproloL fumarate [Zebeta] 2.5 mg PO BEDTIME 11/20/23 - Past Medical/Surgical History Diabetic: No -: HTN -: High Cholesterol -: Prostate surgery -: carpal tunnel surgery - Family History Father Medical History: Hypertension, Stroke Mother Medical History: Heart disease, Diabetes, Other (see notes) Notes: Heart attack, Brain Aneurism - Social History Smoking Status: Former smoker Alcohol use: No CD- Drugs: No Caffeine use: Yes Place of Residence: Home Review of Systems 10-point ROS is otherwise unremarkable Physical Examination Temp Pulse Resp BP Pulse Ox 97.7 F 51 16 164/64 H 97 12/15/24 08:00 12/15/24 09:01 12/15/24 08:00 12/15/24 09:01 12/15/24 08:00 General: Alert, In no apparent distress HEENT: Atraumatic, PERRLA, Mucous membr. moist/pink, EOMI, Sclerae nonicteric Neck: Supple, 2+ carotid pulse no bruit, No LAD, Without JVD or thyroid abnormality Respiratory: Clear to auscultation bilaterally, Normal air movement Cardiovascular: Regular rate/rhythm, Normal S1 S2 Gastrointestinal: Normal bowel sounds, No tenderness Musculoskeletal: No tenderness Integumentary: No rashes Neurological: Normal gait, Normal speech, Normal tone, Normal affect Lymphatics: No axilla or inguinal lymphadenopathy Laboratory Data (last 24 hrs) 12/14/24 12/14/24 12/14/24 20:27 20:27 20:27 WBC 6.50 Hgb 12.8 L Hct 38.3 L Plt Count 207 PT 12.1 INR 1.07 Sodium 131 L Potassium 3.7 BUN 14 Creatinine 0.83 Glucose 130 H Magnesium 2.2 Total Bilirubin 0.5 AST 22 ALT 41 Alkaline Phosphatase 70 - Problems (1) Chest pain Current Visit: Yes Status: Acute Plan: patient denies having chest pain, cardiac enzymes are negative x3 continue ASA 81 mg daily outpatient follow up with cardiology for further testing (2) HTN (hypertension) Onset Date: 10/04/16 Current Visit: No Status: Acute Plan: increase Diovan to 160 mg po daily continue Bisoprolol 20 mg daily, monitor HR closely may consider adding HCTZ if BP stay high continue to monitor (3) Hyperlipidemia Onset Date: 10/04/16 Current Visit: No Status: Acute Plan: continue lipitor 40 mg daily
[2024-12-15 11:54] VITALS: BP 137/59; TEMP 97.8
--- NOTE | 2024-12-15 12:03 | P.SSS ---
Patient History Date of Service: 12/15/24 Reason for admission: Hypertension History of Present Illness: HIGH BP AT HOME. HE HAS HAD SEVERE ORTHOSTASIS SINCE THE STROKE. HE HAS HAD OCC HIGH BP BUT WE CAN'T RAISE MEDS BP EVEN TODAY DROPPED DOWN TO 90 SYSTOLIC ON STANDING FROM 140 ON LAYING DOWN. HE IS AT HIS BASELINE. HE HAS NO CHEST PAIN AND DID NOT HAVE ANY ON ADMISSION. Allergies iodine Adverse Reaction (Severe, Verified 12/15/24 01:30) Anaphylaxis Home medications list reviewed: Yes Home Medications: Potassium Citrate [Potassium] 99 mg PO DAILY 06/21/22 Simvastatin [Zocor] 20 mg PO DAILY 06/21/22 Telmisartan [Micardis] 80 mg PO DAILY 06/21/22 Ascorbic Acid [Vitamin C*] 500 mg PO DAILY 11/20/23 Cholecalciferol (Vitamin D3) [Vitamin D3] 1,000 unit PO DAILY 11/20/23 bisoproloL fumarate [Zebeta*] 2.5 mg PO BEDTIME 11/20/23 - Past Medical/Surgical History Has patient received pneumonia vaccine in the past: Yes Diabetic: No -: HTN -: High Cholesterol -: Prostate surgery -: carpal tunnel surgery - Family History Father -: Hypertension, Stroke Mother -: Heart disease, Diabetes, Other (see notes) Notes: Heart attack, Brain Aneurism - Social History Smoking Status: Former smoker Alcohol use: No CD- Drugs: No Caffeine use: Yes Place of Residence: Home Review of Systems 10-point ROS is otherwise unremarkable General: Weakness, As per HPI Physical Examination - Vital Signs Temperature: 97.8 F Blood Pressure: 137/59 Pulse: 55 Respirations: 16 Pulse Ox (%): 97 - Physical Exam General: Alert, In no apparent distress HEENT: Atraumatic, PERRLA, Mucous membr. moist/pink, EOMI, Sclerae nonicteric Neck: Supple, 2+ carotid pulse no bruit, No LAD, Without JVD or thyroid abnormality Respiratory: Clear to auscultation bilaterally, Normal air movement Cardiovascular: Regular rate/rhythm, Normal S1 S2 Gastrointestinal: Normal bowel sounds, No tenderness Musculoskeletal: No tenderness Integumentary: No rashes Neurological: Normal gait, Normal speech, Normal strength at 5/5 x4 extr, Normal tone, Normal affect Lymphatics: No axilla or inguinal lymphadenopathy - Studies Laboratory Data (last 24 hrs) 12/14/24 12/14/24 12/14/24 20:27 20:27 20:27 WBC 6.50 Hgb 12.8 L Hct 38.3 L Plt Count 207 PT 12.1 INR 1.07 Sodium 131 L Potassium 3.7 BUN 14 Creatinine 0.83 Glucose 130 H Magnesium 2.2 Total Bilirubin 0.5 AST 22 ALT 41 Alkaline Phosphatase 70 - Diagnosis (Problem(s)) (1) Labile essential hypertension Current Visit: Yes Status: Acute Plan: WILL HAVE TO AVOID ADDITIONAL MEDS BP DROPS WHEN HE STANDS. HE HAS THIS ISSUE FOR LONG TIME. I WILL FU AND LOOK INTO PYRIDOSTIGMINE FOR ORTHOSTASIS AT OFFICE. PROGNOSIS GUARDED HE IS TO BE CAREFUL. (2) Orthostatic hypotension Current Visit: Yes Status: Acute - Disposition Disposition: ROUTINE DISCHARGE
[2024-12-15] MEDS ORDERED: ATORVASTATIN 40 MG TAB PO SCH (21:00)
== END 2024-12-15 13:25 | disposition home or self-care (01) ==
LOC: ER 19:26 → ERHOLD 23:14 → 4TH 12-15 01:01
PROVIDERS: ADMIT Internal Medicine; ATTEND Internal Medicine
DX: I16.0 Hypertensive urgency (principal); I95.1 Orthostatic hypotension; R07.89 Other chest pain; E78.5 Hyperlipidemia, unspecified; E78.00 Pure hypercholesterolemia, unspecified; I10 Essential (primary) hypertension; Z88.8 Allergy status to other drugs, medicaments and biological substances; Z86.73 Personal history of transient ischemic attack (TIA), and cerebral infarction without residual deficits
CPT/HCPCS: 93005; 85025; 80048 ×2; 36415; 83735; 82550; 85610; 80076; 81003; 84484 ×3; 83880; 99285; Q0162; J0360; G0378 ×3; 90656